=== PATIENT | female | born 1995 | race Caucasian/White ===

== ENCOUNTER 2017-12-03 19:34 | Emergency (ER) | payer MEDICAID ==
[~2017-12-03] VITALS: Ht 170.2 cm; Wt 93.1 kg
[2017-12-03 21:27] VITALS: BP 135/86
== END 2017-12-04 05:08 | disposition home or self-care (01) ==
LOC: ER 19:34
DX: S93.602A Unspecified sprain of left foot, initial encounter (principal); F17.200 Nicotine dependence, unspecified, uncomplicated; Z88.2 Allergy status to sulfonamides; W17.2XXA Fall into hole, initial encounter; Y93.89 Activity, other specified; Y92.89 Other specified places as the place of occurrence of the external cause
CPT/HCPCS: 73630; 81025; 99284

== ENCOUNTER 2018-10-12 22:15 | Emergency (ER) | payer MEDICAID ==
[~2018-10-12] VITALS: Ht 172.7 cm; Wt 94.5 kg
[2018-10-13] MEDS ORDERED: IBUPROFEN 600MG TABLET PO ONE (00:30)
[2018-10-13 01:10] VITALS: BP 142/74
== END 2018-10-13 01:11 | disposition home or self-care (01) ==
LOC: ER 22:15
DX: R51 Headache (principal); R03.0 Elevated blood-pressure reading, without diagnosis of hypertension
CPT/HCPCS: 99283

== ENCOUNTER 2019-01-04 06:09 | Emergency (ER) | payer MEDICAID ==
[~2019-01-04] VITALS: Ht 170.2 cm; Wt 96.0 kg
[2019-01-04 07:25] LABS: *AMPHETAMINES SCREEN URINE NEGATIVE (NEGATIVE); *BARBITURATES SCREEN URINE NEGATIVE (NEGATIVE); *BENZODIAZEPINES SCREEN URINE NEGATIVE (NEGATIVE); *COCAINE SCREEN URINE NEGATIVE (NEGATIVE)
[2019-01-04 07:26] LABS: CANNABINOID URINE SCREEN NEGATIVE (NEGATIVE); METHADONE URINE SCREEN NEGATIVE (NEGATIVE); OPIATES URINE SCREEN NEGATIVE (NEGATIVE); PHENCYCLIDINE URINE SCREEN NEGATIVE (NEGATIVE)
[2019-01-04 07:56] LABS: BASOPHILS % 0.8 % (0.0-2.0); EOSINOPHILS % 3.7 % (0.0-5.0); HEMATOCRIT. 37.5 % (36.0-48.0); HEMOGLOBIN. 12.4 g/dL (12.0-16.0); LYMPHOCYTES % 24.2 % (20.0-50.0); MEAN CORPUSCULAR HEMOGLOBIN 27.1 pg (28.0-32.0); MEAN CORPUSCULAR VOLUME 82.2 fL (81.0-99.0); MEAN PLATELET VOLUME 8.9 fl (7.4-10.4); MONOCYTES % 8.7 % (2.0-8.0); NEUTROPHILS % 62.6 % (40.0-76.0); PLATELET 331 x1000/uL (130-400); RED BLOOD CELL COUNT 4.56 mill/uL (4.2-5.4); RED CELL DISTRIBUTION WIDTH 14.4 % (11.6-14.6)
[2019-01-04 07:59] LABS: CHLORIDE 105 mEq/L (98-107)
[2019-01-04] MEDS ORDERED: ALBUTEROL (0.083%) 2.5MG/3ML NEB HHN STA (08:22)
[2019-01-04] MEDS ORDERED: ACETAMINOPHEN 500MG TABLET PO ONE (08:30)
[2019-01-04] MEDS ORDERED: MAGNESIUM/ALUMINUM HYDROXIDE/SIMETHICONE 30ML UDC PO ONE (08:30)
[2019-01-04 09:39] VITALS: BP 132/90
== END 2019-01-04 09:41 | disposition home or self-care (01) ==
LOC: ER 08:47
DX: R07.89 Other chest pain (principal); R11.10 Vomiting, unspecified; R19.7 Diarrhea, unspecified; F17.200 Nicotine dependence, unspecified, uncomplicated; G43.909 Migraine, unspecified, not intractable, without status migrainosus; Z88.2 Allergy status to sulfonamides
CPT/HCPCS: 36415; 71045; 80053; 80305; 81025; 83880; 84484; 85025; 85379; 93005; 94640; 99284; 99406; J7611; Z7610

== ENCOUNTER 2021-07-02 21:15 | Emergency (ER) | payer MEDICAID ==
[~2021-07-02] VITALS: Ht 170.2 cm; Wt 101.0 kg
[2021-07-02 21:20] VITALS: BP 132/58
[2021-07-02] MEDS ORDERED: VISCOUS LIDOCAINE 2% 15 ML UDC PO STA (23:05)
[2021-07-02] MEDS ORDERED: MAGNESIUM/ALUMINUM HYDROXIDE/SIMETHICONE 30ML UDC PO STA (23:05)
[2021-07-02] MEDS ORDERED: FAMOTIDINE 20MG TABLET PO ONE (23:15)
[2021-07-02 23:27] LABS: BASOPHILS % 0.3 % (0.0-2.0); EOSINOPHILS % 2.5 % (0.0-5.0); HEMATOCRIT. 37.5 % (36.0-48.0); HEMOGLOBIN. 12.3 g/dL (12.0-16.0); LYMPHOCYTES % 19.4 % (20.0-50.0); MEAN CORPUSCULAR HEMOGLOBIN 27.2 pg (28.0-32.0); MEAN CORPUSCULAR VOLUME 82.8 fL (81.0-99.0); MEAN PLATELET VOLUME 9.1 fl (7.4-10.4); MONOCYTES % 7.5 % (2.0-8.0); NEUTROPHILS % 70.3 % (40.0-76.0); PLATELET 277 x1000/uL (130-400); RED BLOOD CELL COUNT 4.53 mill/uL (4.2-5.4); RED CELL DISTRIBUTION WIDTH 14.8 % (11.6-14.6)
[2021-07-02 23:30] LABS: CHLORIDE 110 mEq/L (98-107)
[2021-07-02 23:43] LABS: HCG SCREEN NEGATIVE
[2021-07-03 00:18] LABS: CLARITY URINE CLEAR (CLEAR); COLOR URINE YELLOW (YELLOW); KETONES URINE NEGATIVE (NEGATIVE); LEUKOCYTE ESTERASE URINE NEGATIVE (NEGATIVE); NITRITE URINE NEGATIVE (NEGATIVE); OCCULT BLOOD URINE 1+ (NEGATIVE); PH URINE 5.5 (4.5-8.0); PROTEIN URINE NEGATIVE (NEGATIVE); SPECIFIC GRAVITY URINE 1.024 (1.005-1.030); UROBILINOGEN URINE 0.2 E.U./dL (0.2-1.0)
[2021-07-03] MEDS ORDERED: FAMO40TA70 MT (02:09)
== END 2021-07-03 03:28 | disposition home or self-care (01) ==
LOC: ER 21:15
DX: K29.00 Acute gastritis without bleeding (principal)
CPT/HCPCS: 36415; 74177; 76705; 80053; 81003; 84703; 85025; 99285

== ENCOUNTER 2021-10-19 03:22 | Emergency (ER) | payer MEDICAID ==
[~2021-10-19] VITALS: Ht 167.6 cm; Wt 108.0 kg
[~2021-10-19 03:22] MED LIST: FAMO40TA70 MT
[2021-10-19 03:32] VITALS: BP 145/87
[2021-10-19] MEDS ORDERED: NAPR-679 MT (08:08)
== END 2021-10-19 08:26 | disposition home or self-care (01) ==
LOC: ER 03:22
DX: G44.89 Other headache syndrome (principal); M54.2 Cervicalgia; Z91.81 History of falling
CPT/HCPCS: 81025; 99284